=== PATIENT | male | born 1990 ===

== ENCOUNTER 2021-09-09 20:09 | Emergency (ER) | payer SELFPAY ==
[2021-09-09 20:19] VITALS: BP 120/68
--- NOTE | 2021-09-09 20:54 | Emergency Department Report ---
HPI - General Chief Complaint: Wound/Laceration Time Seen by Provider: 09/09/21 20:39 - HPI HPI: 30-year-old male presents to the emergency department with a laceration to the back of the left forearm that occurred prior to presentation. He accidentally cut himself with a ammonia box tender. Unknown last tetanus vaccination. He denies any past medical history. He wrapped it up with a towel, held pressure, and came into the emergency department. ED Past Medical Hx - Past Medical History Previous Medical History?: No - Surgical History Past Surgical History?: No - Social History Smoking Status: Unknown if ever smoked ED Review of Systems ROS: Stated complaint: LT ARM LACERATION Other details as noted in HPI Comment: All other systems reviewed and negative Constitutional: denies: chills, fever Musculoskeletal: denies: myalgia Skin: other (forearm laceration). denies: rash Neurological: denies: headache, weakness Physical Exam - Physical Exam Vital Signs: Vital Signs 09/09/21 20:14 Temperature 98.5 F Pulse Rate 72 Respiratory 16 Rate Blood Pressure 120/68 [Right] O2 Sat by Pulse 97 Oximetry Physical Exam: GENERAL: The patient is well-developed well-nourished. HENT: Normocephalic. Atraumatic. Patient has moist mucous membranes. EYES: Extraocular motions are intact. NECK: Supple. Trachea is midline. ABDOMEN: Abdomen is soft, nontender. Patient has normal bowel sounds. SKIN: Skin is warm and dry. There is a 4 cm laceration to the volar mid left forearm that is linear, superficial with some mild venous bleeding. NEURO: The patient is awake, alert, and oriented. The patient is cooperative. Normal speech. MUSCULOSKELETAL: There is no tenderness or deformity. There is no limitation range of motion. Radial pulse +2/4 and capillary refill less than 2 seconds to the affected left upper extremity. ED Course Vital Signs 09/09/21 20:14 Temperature 98.5 F Pulse Rate 72 Respiratory 16 Rate Blood Pressure 120/68 [Right] O2 Sat by Pulse 97 Oximetry - Laceration /Wound Repair Left Finger Wound Location: upper extremity Wound Length (cm): 4 Wound's Depth, Shape: superficial, linear Wound Explored: no foreign body removed Irrigated w/ Saline (ccs): 50 Anesthesia: Lidocaine w/ Epi Volume Anesthetic (ccs): 6 Wound Repaired With: sutures Suture Size/Type: 4:0, proline Number of Sutures: 6 (1 horizontal mattress, 5 simple interrupted) Sterile Dressing Applied?: Yes ED Medical Decision Making - Medical Decision Making Patient presents with a 4 cm linear superficial left volar mid forearm laceration. It appears clean. No foreign body. No signs of infection. I was able to approximate the laceration well with 1 horizontal mattress suture and 5 simple interrupted sutures. We discussed signs/symptoms of infection for which to monitor. He understands that the sutures will need to be removed in about 7 days. He will return to the emergency department with any worsening of his symptoms or with any acute distress. Critical Care Time: No Critical care attestation.: If time is entered above; I have spent that time in minutes in the direct care of this critically ill patient, excluding procedure time. ED Disposition Clinical Impression: Laceration of left forearm Qualifiers: Encounter type: initial encounter Qualified Code(s): S51.812A - Laceration without foreign body of left forearm, initial encounter Disposition: 01 HOME / SELF CARE / HOMELESS Is pt being admited?: No Condition: Stable Instructions: Laceration Care, Adult, Sutured Wound Care, [id number] Additional Instructions: The sutures will need to be removed in 7 days. This can be done at a primary care office, urgent care, or back in the emergency department. Monitor for signs/symptoms of infection such as increased pain, increased swelling, surrounding redness, discharge of pus, or development of fever. Clean the area with soap and water and then make sure it remains dry. Return to the emergency department with any worsening of your symptoms, new or concerning symptoms not addressed during this current emergency department visit, or with any acute distress. Referrals: PRIMARY CARE, [Primary Care Provider] - 3-5 Days Time of Disposition: 22:36 Print Language: IRISH
[2021-09-09] MEDS ORDERED: LIDOCAINE 1%/EPINEPHRINE 1:100,000 VIAL (20 ML) INFILTRATI NR (21:00)
[2021-09-09] MEDS ORDERED: LIDOCAINE 2%/EPINEPHRINE 1:200,000 VIAL (20 ML) INFILTRATI ONE (21:22)
[2021-09-09] MEDS ORDERED: TETANUS,DIPH,PERTUSS(ACELL) VACCINE 0.5 ML SYRINGE IM ONE (21:54)
== END 2021-09-09 22:43 | disposition home or self-care (01) ==
LOC: ED 20:09
DX: S51.812A Laceration without foreign body of left forearm, initial encounter (principal); X58.XXXA Exposure to other specified factors, initial encounter; Y93.89 Activity, other specified; Y92.89 Other specified places as the place of occurrence of the external cause; Y99.8 Other external cause status
CPT/HCPCS: 12002; 99282; J3490